=== PATIENT | male | born 1985 | race Caucasian/White ===

== ENCOUNTER 2017-10-31 10:09 | Emergency (ER) | payer MEDICAID ==
--- NOTE | 2017-10-31 10:42 | EDM.PDOC ---
ED HPI GENERAL MEDICAL PROBLEM - General Chief Complaint: Laceration Stated Complaint: LT THUMB LAC Time Seen by Provider: 10/31/17 10:42 - History of Present Illness INITIAL COMMENTS - FREE TEXT/NARRATIVE: 31-year-old male presents emergency room with a left thumb laceration. This occurred shortly before arrival the patient was skinning a calf that last night. This was a new born calf. Patient cannot recall what his last tetanus shot was. Patient denies any other injuries and is otherwise doing well Left Hand Pain Score (Numeric/FACES): 7 - Related Data Allergies Allergy/AdvReac Type Severity Reaction Status Date / Time No Known Allergies Allergy Verified 10/31/17 10:33 Home Meds: Home Meds Doxycycline [Vibramycin] 100 mg PO Q12H #14 tab 10/31/17 [Rx] Past Medical History - Past Health History Medical/Surgical History: Denies Medical/Surgical History Cardiovascular History: Reports: None Respiratory History: Reports: None Gastrointestinal History: Reports: None Neurological History: Reports: Seizure Dermatologic History: Reports: Other (See Below) - Past Surgical History HEENT Surgical History: Reports: Oral Surgery Other Endocrine Surgeries/Procedures: biopsy of lymph node as child Dermatological Surgical History: Reports: Other (See Below) Social & Family History - Tobacco Use Smoking Status *Q: Never Smoker Second Hand Smoke Exposure: No - Caffeine Use Caffeine Use: Reports: Coffee - Alcohol Use Days Per Week of Alcohol Use: 4 Number of Drinks Per Day: 1 Total Drinks Per Week: 4 - Recreational Drug Use Recreational Drug Use: No - Living Situation & Occupation Living situation: Reports: Occupation: Employed ED ROS GENERAL - Review of Systems Review Of Systems: See Below Constitutional: Denies: Fever, Chills Respiratory: Reports: No Symptoms Cardiovascular: Reports: No Symptoms GI/Abdominal: Reports: No Symptoms ED EXAM, SKIN/RASH Exam: See Below Exam Limited By: No Limitations General Appearance: Alert, No Apparent Distress, Other (On the dorsum of his thumb just to the ulnar side of the metacarpal he has a 2.2 cm laceration that is gaping open.) Respiratory/Chest: No Respiratory Distress, Lungs Clear, Normal Breath Sounds Cardiovascular: Regular Rate, Rhythm, No Edema, No Murmur Extremities: Other (Exam is from his left hand shows left thumb laceration 2-1/ 4 cm on the dorsum of the hand over the thumb metacarpal. He has limited range of motion but this seems to be chronic according to the patient he has a prior laceration that is well-healed on the palmar aspect. His extension is normal actively and against resistance. Neurovascular status of the thumb is normal) ED SKIN PROCEDURES - Laceration/Wound Repair Left Hand Lac/Wound length In cm: 2.2 Appearance: Subcutaneous, Linear Distal NVT: Neuro & Vascular Intact Anesthetic Type: Local Local Anesthesia - Lidocaine (Xylocaine): 1% Plain Local Anesthetic Volume: 4cc Skin Prep: Saline Saline Irrigation (cc's): 70 Exploration/Debridement/Repair: Wound Explored, In a Bloodless Field, Explored to Base Closed with: Sutures Suture Size: 4-0 # of Sutures: 3 Suture Type: Mattress Sterile Dressing Applied: Nurse Tetanus Status Addressed: Other (This was addressed and updated) Complications: No Complication Description: No complications Progress/Comments: Patient had satisfactory anesthesia the wound was explored to the base without difficulty 3 horizontal mattress stitches achieved good wound approximation. Course - Vital Signs Last Recorded V/S: Last Vital Signs Temp 37.2 C 10/31/17 10:32 Pulse 62 10/31/17 12:53 Resp 16 10/31/17 12:53 BP 140/85 10/31/17 12:53 Pulse Ox 99 10/31/17 12:53 - Orders/Labs/Meds Orders: Active Orders 24 hr Category Date Time Status Vaccines to be Administered [RC] PER UNIT ROUTINE Care 10/31/17 10:46 Active Meds: Medications Discontinued Medications Generic Name Dose Route Start Last Admin Trade Name Freq PRN Reason Stop Dose Admin Diphtheria/Tetanus/Acell Pertussis 0.5 ml 10/31/17 10:45 10/31/17 11:09 Adacel IM 10/31/17 10:46 0.5 ml .ONCE ONE Administration Doxycycline Hyclate 100 mg 10/31/17 10:45 10/31/17 11:13 Vibramycin PO 10/31/17 10:46 100 mg ONETIME ONE Administration Lidocaine HCl 10 ml 10/31/17 10:45 10/31/17 11:13 Xylocaine 1% INJECT 10/31/17 10:46 10 ml ONETIME ONE Administration Departure - Departure Time of Disposition: 12:32 Disposition: Home, Self-Care 01 Clinical Impression: Laceration of left thumb - Discharge Information Prescriptions: Doxycycline [Vibramycin] 100 mg PO Q12H #14 tab Instructions: Laceration Care, Adult Referrals: PCP,None [Primary Care Provider] - Forms: ED Department Discharge Additional Instructions: Return to the emergency room with any questions problems worsening symptoms. Suture removal. Emergency department or in the clinic in 12 days. He been started on doxycycline, this is an antibiotic, take twice daily until all gone. Your first dose was here in the emergency room start the prescription this evening. Gentle use of your hands. Keep the wound completely clean and dry for the next 24 hours. After 24 hours he can let water gently run over the area and then gently dab dry. - My Orders Last 24 Hours: My Active Orders 10/31/17 10:46 Vaccines to be Administered [RC] PER UNIT ROUTINE - Assessment/Plan Last 24 Hours: My Active Orders 10/31/17 10:46 Vaccines to be Administered [RC] PER UNIT ROUTINE
[2017-10-31] MEDS ORDERED: Doxycycline 100 MG Cap PO ONE (10:45)
[2017-10-31] MEDS ORDERED: Lidocaine 1% 10 ML MDV INJECT ONE (10:45)
[2017-10-31] MEDS ORDERED: Diphtheria,Pertussis(Acell),Tetanus Vaccine 0.5 ML SDV IM ONE (10:45)
[2017-10-31 12:54] VITALS: BP 140/85
== END 2017-10-31 12:45 | disposition home or self-care (01) ==
LOC: JD.ED 10:09
DX: S61.012A Laceration without foreign body of left thumb without damage to nail, initial encounter (principal); W45.8XXA Other foreign body or object entering through skin, initial encounter; Z23 Encounter for immunization
CPT/HCPCS: 12001; 90471; 90715; 99283; A9270

== ENCOUNTER 2024-09-08 21:46 | Emergency (ER) | payer MEDICAID ==
[2024-09-08] MEDS ORDERED: Lidocaine 1% 10 ML MDV INJECT ONE (22:10)
[2024-09-08] MEDS: Lidocaine 1% 10 ML MDV INJECT ONE (22:40)
[2024-09-08 22:51] VITALS: BP 123/86; PULSE 88
== END 2024-09-08 22:56 ==
LOC: JD.ED 21:46
DX: S06.0X0A Concussion without loss of consciousness, initial encounter (principal); S01.01XA Laceration without foreign body of scalp, initial encounter; Z79.899 Other long term (current) drug therapy; W00.0XXA Fall on same level due to ice and snow, initial encounter
CPT/HCPCS: 12001; 70450; 70450-26; 99283; J3490